=== PATIENT | male | born 1995 | race Caucasian/White ===

== ENCOUNTER → 2019-10-17 | Outpatient (CLI) | payer MEDICAID | END | disposition home or self-care (01) | LOC: RAD 16:14 | PROVIDERS: ATTEND Nurse Practitioner Family | DX: N43.3 Hydrocele, unspecified (principal); I86.1 Scrotal varices | CPT/HCPCS: 76870 ==

== ENCOUNTER 2020-01-10 07:30 | Emergency (ER) | payer MEDICAID ==
[~2020-01-10] VITALS: Ht 182.9 cm; Wt 62.2 kg
--- NOTE | 2020-01-10 07:55 | NUR ---
FIRST CONTACT WITH PT. PT C/O: "MUSCLE SPASMS STARTING A COUPLE OF HOURS AGO, AROUND 5 OR SO, I HAVE AN UNDIAGNOSED GI ISSUE AND I AM HAVING TROUBLE EATING, I HAVE DIARRHEA CONSTANTLY AND I HAVE NOT TAKEN ANY ANTIBIOTICS RECENTLY." PT DENIES BLOOD IN STOOL. PT DENIES VOMITING, CP, SOB, OR TRAUMA. PT'S AOX4. RESPS EVEN AND UNLABORED. BP/SPO2 MONITORS IN PLACE. CALL LIGHT WITHIN REACH.
[2020-01-10] MEDS ORDERED: LORazepam 1MG TABLET ONE (08:16)
--- NOTE | 2020-01-10 08:18 | NUR ---
pt medicated per emar. pt tolerated well. pt's aox4. resps even and unlabored.
[2020-01-10] MEDS ORDERED: LORazepam 1MG TABLET PO ONE (08:30)
[2020-01-10 08:31] LABS: BASOPHILS # (AUTO) 0.03 x10^3/uL (0-0.1); BASOPHILS % (AUTO) 0 % (0-1); EOSINOPHILS # (AUTO) 0.06 x10^3/uL (0-0.4); EOSINOPHILS % (AUTO) 1 % (1-7); LYMPHOCYTES # (AUTO) 1.84 x10^3/uL (1-3.4); LYMPHOCYTES % (AUTO) 19 % (22-44); MD NO; MEAN CORPUSCULAR HEMOGLOBIN 32.1 pg (27.5-34.5); MEAN CORPUSCULAR HGB CONC 33.8 g/dL (33.2-36.2); MEAN CORPUSCULAR VOLUME 95.1 fL (81-97); MEAN PLATELET VOLUME 7.6 fL (7.4-10.4); MONOCYTES # (AUTO) 0.63 x10^3/uL (0.2-0.8); MONOCYTES % (AUTO) 7 % (2-9); NEUTROPHILS # (AUTO) 7.14 x10^3/uL (1.8-6.8); NEUTROPHILS % (AUTO) 74 % (42-75); PLATELET COUNT 305 x10^3/uL (130-400); RED BLOOD COUNT 5.11 x10^6/uL (4.38-5.82)
[2020-01-10 08:41] LABS: ALBUMIN 4.5 g/dL (3.4-5.0); ANION GAP 8 mmol/L (5-15); CALCIUM 9.2 mg/dL (8.5-10.1); CHLORIDE 106 mmol/L (98-107); CREATININE 0.95 mg/dL (0.7-1.3)
[2020-01-10 09:05] VITALS: BP 122/78
--- NOTE | 2020-01-10 09:05 | NUR ---
PT RESTING IN [facility]. PT'S AOX4. RESPS EVEN AND UNLABORED. BP/SPO2 MONITORS IN PLACE. CALL LIGHT WITHIN REACH.
--- NOTE | 2020-01-10 09:46 | NUR ---
Patient given discharge instructions and they have confirmed that they understand the instructions. Patient ambulatory with steady gait.
== END 2020-01-10 09:47 | disposition home or self-care (01) ==
LOC: ED 08:13
DX: G40.309 Generalized idiopathic epilepsy and epileptic syndromes, not intractable, without status epilepticus (principal)
CPT/HCPCS: 36415; 80048; 82040; 83605; 85025; 99283

== ENCOUNTER 2020-06-13 19:44 | Emergency (ER) | payer MEDICAID ==
[~2020-06-13] VITALS: Ht 182.9 cm; Wt 61.8 kg
--- NOTE | 2020-06-13 20:53 | NUR ---
PT TO ED WITH C/O OF MEDIAL MIDBACK PAIN. PT REPORTS HEARING "POP" WHEN WRESTLING WITH BROTHER AND ONSET OF 8/10 BACK PAIN WORSE WITH MOVEMENT. PT NEURO INTACT, MOVES ALL EQUAL BILATERALLY. NO GROSS INJURY NOTED, PT DENIES CERVICAL PAIN. PT CONNECTED TO MONITORING, CALL LIGHT WITHIN REACH, ALL SAFETY MEASURES IN PLACE.
[2020-06-13 20:56] VITALS: BP 133/71
[2020-06-13] MEDS ORDERED: METHOCARBAMOL 500 MG TABLET ONE (21:19)
[2020-06-13] MEDS ORDERED: KETOROLAC 30 MG/1 ML ONE (21:19)
[2020-06-13] MEDS ORDERED: METHOCARBAMOL 500 MG TABLET PO ONE (21:30)
[2020-06-13] MEDS ORDERED: KETOROLAC 30 MG/1 ML IM ONE (21:30)
== END 2020-06-13 21:38 | disposition home or self-care (01) ==
LOC: ED 21:30
DX: G89.11 Acute pain due to trauma (principal); M54.6 Pain in thoracic spine; F20.9 Schizophrenia, unspecified; K50.90 Crohn's disease, unspecified, without complications
CPT/HCPCS: 71046; 96372; 99283; J1885

== ENCOUNTER 2021-02-05 09:52 | Day surgery (SDC) | payer MEDICAID ==
[~2021-02-05] VITALS: Ht 182.9 cm; Wt 72.6 kg
[2021-02-05] MEDS ORDERED: SERT100T PO (10:40)
[2021-02-05 10:42] VITALS: BP 123/79
[2021-02-05] MEDS ORDERED: LIDOCAINE 1%, 10ML ONE (10:59)
[2021-02-05] MEDS ORDERED: SODIUM CHLORIDE 0.9% 1,000 ML IV SCH (11:00)
[2021-02-05] MEDS ORDERED: FENTANYL PF 100 MCG/2ML ONE (11:39)
[2021-02-05] MEDS ORDERED: FLUMAZENIL 0.1 MG/1 ML, 5ML ONE (11:39)
[2021-02-05] MEDS ORDERED: MIDAZOLAM 1 MG/ML, 5ML ONE ×2 (11:39)
[2021-02-05] MEDS ORDERED: NALOXONE 1 MG/ML, 2ML ONE (11:39)
[2021-02-05] MEDS ORDERED: VISIPAQUE 270 MG/ML, 150ML BOTTLE ONE (13:00)
== END 2021-02-05 14:05 | disposition home or self-care (01) ==
LOC: OUT 09:52 → EDSTATUS 12:00 → OUT 14:05
PROVIDERS: ATTEND Physician Assistant
DX: I86.1 Scrotal varices (principal); E78.5 Hyperlipidemia, unspecified; F17.210 Nicotine dependence, cigarettes, uncomplicated; Z72.89 Other problems related to lifestyle; Z79.899 Other long term (current) drug therapy
CPT/HCPCS: 37241; 76937; 99156; 99157; C1751; C1769; C1894; J2250; J3010; J7030; 75894; Q9966; J2310

== ENCOUNTER 2021-07-31 09:50 | Emergency (ER) | payer MEDICAID ==
[~2021-07-31] VITALS: Ht 182.9 cm; Wt 60.5 kg
[~2021-07-31 09:50] MED LIST: SERT100T PO
[2021-07-31 10:03] VITALS: BP 143/76
[2021-07-31 16:31] LABS: BASOPHILS % (AUTO) 0 % (0-1); EOSINOPHILS % (AUTO) 1 % (1-7); LYMPHOCYTES % (AUTO) 26 % (22-44); MEAN CORPUSCULAR HEMOGLOBIN 32.2 pg (27.5-34.5); MEAN PLATELET VOLUME 7.4 fL (7.4-10.4); MONOCYTES % (AUTO) 9 % (2-9); NEUTROPHILS % (AUTO) 64 % (42-75); PLATELET COUNT 245 x10^3/uL (130-400); RED BLOOD COUNT 5.14 x10^6/uL (4.38-5.82); RED CELL DISTRIBUTION WIDTH 12.1 % (9.4-14.8)
[2021-07-31 16:44] LABS: ALANINE AMINOTRANSFERASE 30 U/L (12-78); ALBUMIN 4.4 g/dL (3.4-5.0); ANION GAP 8 mmol/L (5-15); CALCIUM 9.2 mg/dL (8.5-10.1); CHLORIDE 104 mmol/L (98-107); CREATININE 0.82 mg/dL (0.7-1.3)
[2021-07-31 16:54] LABS: ALKALINE PHOSPHATASE 67 U/L (45-117); BILIRUBIN,TOTAL 0.9 mg/dL (0.2-1.0); TOTAL PROTEIN 8.6 g/dL (6.4-8.2)
== END 2021-07-31 19:02 | disposition home or self-care (01) ==
LOC: ED 18:25
DX: R53.1 Weakness (principal); Z87.891 Personal history of nicotine dependence
CPT/HCPCS: 36415; 80053; 84443; 85025; 87806; 99283; G0475